=== PATIENT | female | born 1945 | race Caucasian/White ===

== ENCOUNTER → 2016-05-15 | Outpatient (CLI) | payer MEDICARE ==
[~2016-05-15] MED LIST: AMIT25TA PO; LISI40TA PO; SIMV40TA3 PO
--- NOTE | 2016-05-16 09:29 | RAD ---
Supine abdomen. History: Lower abdominal pain Supine view was taken of the abdomen. There is no bowel obstruction. There are no abnormal calcifications. There is mild stool in the right colon and transverse colon. Impression: 1. No bowel obstruction or acute finding noted in the abdomen.
== END | disposition home or self-care (01) ==
LOC: RAD 17:09
PROVIDERS: ATTEND Nurse Practitioner Family
DX: R10.30 Lower abdominal pain, unspecified (principal)
CPT/HCPCS: 74000

== ENCOUNTER → 2016-07-09 | Outpatient (CLI) | payer MEDICARE ==
[~2016-07-09] MED LIST changes: +IOHEXOL 300 MG/ML 100ML VIAL. IV ONE
--- NOTE | 2016-07-09 16:28 | KCIC ---
PROCEDURE CT of the abdomen and pelvis with and without contrast using urogram protocol HISTORY Hematuria. TECHNIQUE 95 cc Omnipaque 300 intravenous contrast. Precontrast, dynamic and delayed imaging performed. Exposure: One or more of the following individualized dose reduction techniques were utilized for this exam: 1. Automated exposure control. 2. Adjustment of the mA and/or kV according to patient size. 3. Use of iterative reconstruction technique. COMPARISON Noncontrast exam 08/13/2014. FINDINGS Low-density lesion identified in the anterior right kidney measures 11 millimeter diameter and measures 20 Hounsfield units compatible with a cyst. There is a smaller lesion or defect at the posterior cortex of the right kidney, may represent an area of cortical scarring versus a tiny cyst or angiomyolipoma. The overall appearance of these findings is roughly similar to the prior study but that prior exam was performed without contrast making comparison limited. No evidence of urolithiasis. No evidence of hydronephrosis or ureter dilatation. Both kidneys demonstrate symmetric nephrograms. There is also symmetric excretion of contrast by both kidneys. No evidence of asymmetric urinary bladder wall thickening. The dynamic images only covered the kidneys. Therefore, examination of other solid viscera, vasculature in GI tract is limited due to the lack of visceral enhancement and oral contrast. Liver, spleen, pancreas, adrenals appear grossly unremarkable. No calcified gallstone. No aortic aneurysm. Small hiatal hernia. No bowel obstruction. No pericolonic inflammation. There are scattered colonic diverticula. Mild to moderate stool burden in the colon. The appendix appears normal. No evidence of ascites. No evidence of significant lymph node enlargement. IMPRESSION 1. No evidence of urinary tract calculus, obstruction or other pathology. 2. Low-density lesion of the anterior superior right kidney, most compatible with a cyst. 3. There is some mild cortical irregularity low-density at the posterior right kidney, could represent a focus of scarring versus a tiny cyst or angiomyolipoma. Electronically signed by: Angus Johnson MD (Jul 09, 2016 16:26:10)
== END | disposition home or self-care (01) ==
LOC: KCIC CT 12:24
PROVIDERS: ATTEND Nurse Practitioner Occupational Health
DX: R31.9 Hematuria, unspecified (principal)
CPT/HCPCS: 74178; 82565; Q9967

== ENCOUNTER → 2016-07-23 | Outpatient (CLI) | payer MEDICARE ==
[~2016-07-23] MED LIST changes: -IOHEXOL 300 MG/ML 100ML VIAL. IV ONE
--- NOTE | 2016-07-23 12:56 | KCIC ---
PROCEDURE Coronary artery calcium score HISTORY Calcium screening. Family history of CAD. Hypercholesterolemia. Known abnormality of left lung. TECHNIQUE High resolution, computed tomography of the heart was performed with ECG gating and suspended respiration using the Siemens HeartView CT. No contrast material was administered. Post processing was performed on the 3-D computer workstation using diastolic phase images to measure the amount of coronary vascular calcium. Scoring was performed utilizing the Agatston Method. COMPARISON CT chest with contrast August 17, 2014. FINDINGS Thorax: Small hiatal hernia. Cardiac size normal. Bilateral lower lobe atelectasis or scarring. Calcified granulomas left lower lobe. Nodular opacity in the medial left lower lobe measures 1.2 x 2 cm. This nodule is increased in size. Nodule in the superior segment of the left lower lobe measuring up to 1.6 cm is not significantly changed. There is a new nodular opacity just superior measuring 1.5 cm. Left paraspinal dermal and subdermal soft tissue density is stable, image 24. Coronary arteries:CALCIUM IS PRESENT TOTAL AGATSTON CALCIUM SCORE =394.5. Calcium is detected in the coronary circulation and confirms the presence of atherosclerotic plaque. Calcium score in LAD is 51.1, circumflex 0, RCA 343.5. No significant calcium is identified within the left main coronary artery. The presence of coronary calcium confirms the presence of atherosclerotic plaque. The greater the amount of coronary calcium, the greater the likelihood of stenotic or occlusive coronary artery disease. However, there is not a one-to-one relationship, and findings may not be site specific. The total amount of calcium correlates best with the total amount of atherosclerotic plaque, although the true "plaque burden" can be underestimated by calcium score. MODERATE coronary atherosclerosis is present. Individuals in this score range typically have mild to moderate luminal irregularity at coronary angiography. There is an INTERMEDIATE RISK of cardiovascular events based on this test. IMPRESSION 1. Coronary atherosclerosis is present, moderate amount. 2. Intermediate risk of cardiovascular event. 3. Nodular opacity in the medial left lower lobe has increased in size since 2014. Malignancy is not excluded. Nodular opacity in the superior segment of the left lower lobe is similar, there is a new nodular opacity just superior. Recommend further evaluation with CT chest with contrast. RECOMMENDATIONS 1. Further evaluation and prevention strategies should be based on global assessment of cardiovascular risk factors in addition to the results of this test. 2. Aggressive reduction of modifiable cardiovascular risk factors should be considered. Additional supporting information concerning the findings and recommendation contained within this report can be found in the consensus statements on coronary vascular calcium published by the [place] [employer] and [place] [employer] and [employer] 5 Conference (Circulation 1996; 94: 4553-7811; J Am Celia Cardiol 2000; 36: 326-340 and Circulation 2000; 101: 111-116). Electronically signed by: Graham Dang MD (Jul 23, 2016 12:54:11)
--- NOTE | 2016-07-23 13:30 | KCIC ---
Bilateral digital screening mammograms with CAD: HISTORY Routine screening COMPARISON Comparison is made to previous examinations dated 01/23/2015. FINDINGS Breast density category C. The skin and nipples show no abnormalities. No abnormal lymph nodes are seen in the axilla. The breast parenchyma shows heterogeneous density. There are no dominant masses, suspicious calcifications or architectural distortions. IMPRESSION No evidence of malignancy. Recommend routine annual mammographic screening. This study was interpreted with the benefit of Computerized Aided Detection (CAD). Mammography is not 100% sensitive in detecting breast cancer. Therefore, a self breast exam and a clinical breast exam are very important. A negative mammogram does not negate a clinically suspicious finding and should not result in a delay in biopsying a clinically suspicious abnormality. BI-RADS category 1. Negative. This patient's information has been entered into a reminder system for the patient to be notified with the results of this examination and a target date for her next mammograms. Electronically signed by: Taylor Malcolm MD (Jul 23, 2016 13:28:15)
--- NOTE | 2016-07-23 13:53 | KCIC ---
PROCEDURE Bone mineral density exam HISTORY Low vitamin-D level, postmenopausal COMPARISON 03/24/2012 FINDINGS Bone mineral density examination utilizing DEXA was performed. Left hip bone mineral density of 0.878 grams/centimeter squared corresponds with T-score-0.5 and a Z-score 1.0. Lumbar spine bone mineral density of 0.945 grams per centimeters square corresponds with T-score-0.9 and a Z-score 1.2. Comparing the lumbar spine with 2012 exam there has been-8.4 percent decrease. Comparing the left hip, there has been-10.3 percent decrease. World Health Organization criteria for bone mineral density interpretation: Normal T-score greater than or equal to-1.0, Osteopenia T score between-1.0 and-2.5, Osteoporosis T-score less than or equal to-2.5. IMPRESSION 1. There is normal bone density of the left hip and the lumbar spine. Electronically signed by: Nolan Walton MD (Jul 23, 2016 13:51:36)
== END | disposition home or self-care (01) ==
LOC: KCIC MAMMO 11:12
PROVIDERS: ATTEND Family Medicine
DX: Z12.31 Encounter for screening mammogram for malignant neoplasm of breast (principal); K44.9 Diaphragmatic hernia without obstruction or gangrene; I25.10 Atherosclerotic heart disease of native coronary artery without angina pectoris; N95.9 Unspecified menopausal and perimenopausal disorder; E55.9 Vitamin D deficiency, unspecified
CPT/HCPCS: 75571; 77080; G0202; 77067

== ENCOUNTER → 2016-08-26 | Outpatient (CLI) | payer MEDICARE | END | disposition home or self-care (01) | LOC: NM 12:06 | PROVIDERS: ATTEND Family Medicine | DX: R93.1 Abnormal findings on diagnostic imaging of heart and coronary circulation (principal) | CPT/HCPCS: 78452; 93017; 96374; 96376; A9500 ==

== ENCOUNTER → 2019-02-01 | Outpatient (CLI) | payer MEDICARE ==
[~2019-02-01] MED LIST changes: +LISI-130 PO; -LISI40TA PO
--- NOTE | 2019-02-01 09:49 | KCIC ---
EXAM: Dual energy x-ray absorptiometry (DEXA). HISTORY: Postmenopausal female presents for osteoporosis screening. COMPARISON: 07/23/2016. TECHNIQUE: Dual energy x-ray absorptiometry of the lumbar spine and left hip was performed. Calculation of bone mineral density based on standard deviations above or below the expected young adult normal value (T-score) was completed. FINDINGS: The average bone mineral density in the 1st through 4th lumbar vertebrae is 1.021 g/cmxcm, corresponding with a T-score of -0.2. There has been an 8.0% increase in density of the lumbar spine compared to the prior study. The average total bone mineral density in the left hip is 0.893 g/cmxcm, corresponding with a T-score of -0.4. There has been a 1.6% increase in density of the left hip compared to the prior study. IMPRESSION: Normal bone mineral density. Note: Definitions established by the World Health Organization: 1. Normal: T-score is -1.0 or above. 2. Osteopenia: T-score is between -1.0 and -2.5 . 3. Osteoporosis: T-score is -2.5 or below. Electronically signed by: Blossom Najera MD (02/01/2019 9:46 AM) [id number]
--- NOTE | 2019-02-01 13:30 | KCIC ---
Bilateral digital screening mammograms with 3-D tomosynthesis: Reason for examination: Routine screening. Comparison is made to previous studies dated 07/23/2016 and 01/23/2015. Bilateral mammograms in CC and oblique projections were obtained with 2-D imaging and 3-D tomosynthesis imaging on a Siemens Inspiration unit and reviewed on the workstation. Interpretation was made with the benefit of CAD. The skin and nipples show no abnormalities. No abnormal axillary lymph nodes are seen. The breast parenchyma shows scattered fatty and fibroglandular density. (Breast density: Category B.) There are no dominant masses, suspicious calcifications or architectural distortion. Impression: No evidence of malignancy. Recommend routine screening. BI-RAD Category 1: Negative. "Our facility is accredited by the [employer] Mammography Program." This patient's information has been entered into a reminder system for the patient to be notified with the results of her examination and a target date for the next mammogram. Electronically signed by: Windy Malcolm MD (02/01/2019 1:27 PM) [id number]
== END | disposition home or self-care (01) ==
LOC: KCIC DEXA 08:05
PROVIDERS: ATTEND Nurse Practitioner Family
DX: Z13.820 Encounter for screening for osteoporosis (principal); Z12.31 Encounter for screening mammogram for malignant neoplasm of breast; Z78.0 Asymptomatic menopausal state; Z82.62 Family history of osteoporosis
CPT/HCPCS: 77063; 77067; 77080